=== PATIENT | female | born 1955 ===

== ENCOUNTER 2016-10-18 07:27 | Day surgery (SDC) | payer BC ==
[2016-10-18] MEDS ORDERED: Lactated Ringer's 500 ML IV ONE (07:51)
[2016-10-18] MEDS ORDERED: Propofol 10 mg/ml Inj (20 ML) ONE (09:11)
[2016-10-18 09:43] VITALS: O2SAT 98
[2016-10-18 09:58] VITALS: BP 131/69; PULSE 89; RESP 20; TEMP 98.6
== END 2016-10-18 10:30 | disposition home or self-care (01) ==
LOC: H.ENDO 07:27
PROVIDERS: ATTEND Internal Medicine Gastroenterology
DX: Z12.11 Encounter for screening for malignant neoplasm of colon (principal); I10 Essential (primary) hypertension; E05.90 Thyrotoxicosis, unspecified without thyrotoxic crisis or storm; K64.8 Other hemorrhoids
CPT/HCPCS: 45378; J2001; J2704; J7120